=== PATIENT | female | born 1980 | race Caucasian/White ===

== ENCOUNTER 2021-11-07 19:20 | Inpatient (IN) | payer OTHER ==
[2021-11-07] MEDS ORDERED: DINOPROSTONE 10 MG VAGINAL SUPPOSITORY VG ONE (20:15)
[2021-11-07] MEDS ORDERED: DEXTROSE 5%-LACTATED RINGERS 1,000 ML IV SCH (20:15)
[2021-11-07 20:55] LABS: BASO % 0.4 % (0-2.0); EOS % 1.5 % (0-4.5); HEMATOCRIT 33.4 % (32.4-45.2); HEMOGLOBIN 11.8 GM/dL (10.7-15.3); LYMPH % 15.8 % (8-40); MCH 30.4 pg (25.7-33.7); MCHC 35.2 g/dl (32.0-36.0); MEAN CELL VOLUME 86.3 fl (80-96); MEAN PLT VOLUME 7.7 fl (7.5-11.1); MONO % 11.6 % (3.8-10.2); NEUT % 70.7 % (42.8-82.8); PLATELET COUNT 235 10^3/uL (134-434); RBC 3.87 M/mm3 (3.60-5.2); WHITE BLOOD COUNT 10.1 K/mm3 (4.0-10.0)
[2021-11-07 21:03] LABS: INR 0.94 (0.83-1.09); PROTHROMBIN TIME (PATIENT) 10.8 SEC (9.7-13.0)
[2021-11-07 21:06] LABS: ACTIVATED PTT 25.9 SECONDS (25.2-36.5)
[2021-11-07 21:17] LABS: CALCIUM 8.5 mg/dL (8.5-10.1)
[2021-11-07 21:18] LABS: BLOOD UREA NITROGEN 9.2 mg/dL (7-18)
[2021-11-07 21:21] LABS: CREATININE 0.6 mg/dL (0.55-1.3)
[2021-11-07 21:38] VITALS: BMI 30.9
[2021-11-07 21:54] LABS: ANISOCYTOSIS 1+; MACROCYTOSIS 0; PLATELET ESTIMATE NORMAL
[2021-11-08] MEDS ORDERED: OXYTOCIN 30 UNITS in 0.9% NS 30 UNIT/500 ML INFUS.BAG IVPB SCH (05:00)
[2021-11-08] MEDS ORDERED: OXYTOCIN 30 UNITS in 0.9% NS 30 UNIT/500 ML INFUS.BAG IVPB ONE (09:42)
[2021-11-08] MEDS ORDERED: FENTANYL/BUPIVACAINE/NS/PF - PCEA - 50 ML DISP.SYRIN EP ONE (12:14)
[2021-11-08] MEDS ORDERED: NALOXONE HCL 0.4 MG/ML VIAL IVPUSH PRN (12:25)
[2021-11-08] MEDS ORDERED: FENTANYL/BUPIVACAINE/NS/PF - PCEA - 50 ML DISP.SYRIN EP SCH (12:30)
[2021-11-08] MEDS ORDERED: BUTORPHANOL TARTRATE 1 MG/ML VIAL ONE (14:15)
[2021-11-08] MEDS ORDERED: PROMETHAZINE HCL 25 MG/1 ML VIAL IVPB ONE (14:16)
[2021-11-08] MEDS ORDERED: BUTORPHANOL TARTRATE 1 MG/ML VIAL IVPB ONE (14:16)
[2021-11-08] MEDS ORDERED: PROMETHAZINE HCL 25 MG/1 ML VIAL ONE (14:16)
[2021-11-08] MEDS ORDERED: OXYTOCIN 20 UNITS in 0.9% NS 20 UNIT/1,000 ML INFUS.BAG IV ONE (14:28)
[2021-11-08] MEDS ORDERED: LIDOCAINE HCL 1% PRESERVATIVE FREE - 30ML VIAL ONE (14:30)
[2021-11-08] MEDS ORDERED: oxyCODONE HCL 5 MG TABLET PO PRN (15:26)
[2021-11-08] MEDS ORDERED: BENZOCAINE 20% 57 GM BOTTLE TP PRN (15:26)
[2021-11-08] MEDS ORDERED: METHYLERGONOVINE MALEATE 0.2 MG/1 ML AMP IM PRN (15:26)
[2021-11-08] MEDS ORDERED: IBUPROFEN 600 MG TABLET (FP) PO PRN (15:26)
[2021-11-08] MEDS ORDERED: ACETAMINOPHEN 325 MG TABLET (FP) PO PRN (15:26)
[2021-11-08] MEDS ORDERED: BISACODYL 10 MG SUPP.RECT RC PRN (15:26)
[2021-11-08] MEDS ORDERED: BENZOCAINE 28 GM HEMORRHOIDAL OINTMENT TP PRN (15:26)
[2021-11-08] MEDS ORDERED: WITCH HAZEL 50% (TUCKS) 40 PAD/JAR PAD TP PRN (15:26)
[2021-11-08] MEDS ORDERED: OXYTOCIN 20 UNITS in 0.9% NS 20 UNIT/1,000 ML INFUS.BAG IV SCH (15:30)
[2021-11-09 09:10] LABS: BASO % 0.3 % (0-2.0); EOS % 1.1 % (0-4.5); HEMATOCRIT 31.1 % (32.4-45.2); HEMOGLOBIN 10.5 GM/dL (10.7-15.3); LYMPH % 11.9 % (8-40); MCH 29.7 pg (25.7-33.7); MCHC 33.8 g/dl (32.0-36.0); MEAN CELL VOLUME 87.9 fl (80-96); MONO % 9.5 % (3.8-10.2); NEUT % 77.2 % (42.8-82.8); PLATELET COUNT 210 10^3/uL (134-434); RBC 3.54 M/mm3 (3.60-5.2); RDW 13.1 % (11.6-15.6); WHITE BLOOD COUNT 11.4 K/mm3 (4.0-10.0)
[2021-11-09] MEDS ORDERED: SENNOSIDES/DOCUSATE COMBO (SENNA PLUS) TABLET (UD) PO PRN (22:00)
[2021-11-10 08:42] VITALS: BP 130/70; PULSE 78; RESP 20; TEMP 98.8
== END 2021-11-10 12:10 | disposition home or self-care (01) | DRG 560 ==
LOC: JLDR 19:20 → J3W 11-08 16:30
PROVIDERS: ADMIT Specialist; ATTEND Specialist
PROC: 0HQ9XZZ Repair Perineum Skin, External Approach (ICD-10-PCS; principal; 2021-11-08)
PROC: 10E0XZZ Delivery of Products of Conception, External Approach (ICD-10-PCS; 2021-11-08)
DX: O70.0 First degree perineal laceration during delivery (principal); Z3A.39 39 weeks gestation of pregnancy; Z37.0 Single live birth
CPT/HCPCS: 36415; 59409; 80048; 85025; 85610; 85730; 86780; 86850; 86900; 86901; C9803-CS; U0003; U0005